=== PATIENT | female | born 1985 | race American Indian/Alaskan Native ===

== ENCOUNTER 2016-10-19 12:14 | Emergency (ER) | payer OTHER ==
[2016-10-19 12:33] VITALS: BP 115/77
[2016-10-19] MEDS ORDERED: MOTRIN PO ONE (16:08)
--- NOTE | 2016-10-19 16:22 | Emergency Department Report ---
ED Lower Extremity HPI - General Chief Complaint: Extremity Injury, Lower Stated Complaint: RT ACHILLIES TORN/PULLED Time Seen by Provider: 10/19/16 16:07 Source: patient Mode of arrival: Ambulatory Limitations: No Limitations - History of Present Illness Initial Comments: 30-year-old female no past medical history presents with complaint of pain in her right ankle region posteriorly near her Achilles tendon. Patient states yesterday she was pulling basketball and another player accidentally stepped on the back of her right ankle as she was coming down from a jump. Patient states that she has a lot of difficulty bearing weight on right foot due to pain and right Achilles and also has pain with plantar flexion of the right foot and ankle. Patient states that she has no pain in her foot the pain is directly above her right heel and Achilles region. Patient appears uncomfortable awake alert and oriented 3 denies any other injuries. Still has full sensation in her ankle. No injury to left ankle. No lacerations sustained. MD Complaint: ankle injury Onset/Timin -: days(s) Injury: Ankle: Left (possible damage sprain or partial tear to right Achilles tendon due to pain with plantar flexion) Type of Injury: inversion, other (patient states someone stepped on the back of her right ankle by Achilles tendon) Place: street/outdoors Severity: severe Severity scale (0 -10): 8 Improves With: cold therapy, immobilization Worsens With: movement Context: fall, direct blow (another person stepped on her ankle playing basketball) - Related Data Previous Rx's Medication Instructions Recorded Last Taken Type Naproxen [Naprosyn TAB] 500 mg PO BID PRN #30 tablet 10/19/16 Unknown Rx traMADol [Ultram 50 MG tab] 50 mg PO Q6HR PRN #12 tablet 10/19/16 Unknown Rx Allergies Allergy/AdvReac Type Severity Reaction Status Date / Time No Known Allergies Allergy Verified 10/19/16 12:28 ED Review of Systems ROS: Stated complaint: RT ACHILLIES TORN/PULLED Other details as noted in HPI Constitutional: denies: chills, fever Eyes: denies: eye pain, eye discharge, vision change ENT: denies: ear pain, throat pain Respiratory: denies: cough, shortness of breath, wheezing Cardiovascular: denies: chest pain, palpitations Endocrine: no symptoms reported Gastrointestinal: denies: abdominal pain, nausea, diarrhea Genitourinary: denies: urgency, dysuria, discharge Musculoskeletal: as per HPI. denies: back pain, joint swelling, arthralgia Skin: denies: rash, lesions Neurological: denies: headache, weakness, paresthesias Psychiatric: denies: anxiety, depression Hematological/Lymphatic: denies: easy bleeding, easy bruising ED Past Medical Hx - Past Medical History Previous Medical History?: No - Surgical History Additional Surgical History: Left knee surgery - Social History Smoking Status: Light Tobacco Smoker Substance Use Type: Alcohol - Medications Home Medications: Home Medications Medication Instructions Recorded Confirmed Last Taken Type Naproxen [Naprosyn TAB] 500 mg PO BID PRN #30 tablet 10/19/16 Unknown Rx traMADol [Ultram 50 MG tab] 50 mg PO Q6HR PRN #12 tablet 10/19/16 Unknown Rx ED Physical Exam - General Limitations: No Limitations General appearance: alert, in no apparent distress - Head Head exam: Present: atraumatic, normocephalic - Eye Eye exam: Present: normal appearance - ENT ENT exam: Present: mucous membranes moist - Neck Neck exam: Present: normal inspection - Respiratory Respiratory exam: Present: normal lung sounds bilaterally. Absent: respiratory distress - Cardiovascular Cardiovascular Exam: Present: regular rate, normal rhythm. Absent: systolic murmur, diastolic murmur, rubs, gallop - GI/Abdominal GI/Abdominal exam: Present: soft, normal bowel sounds - Extremities Exam Extremities exam: Present: normal inspection - Expanded Lower Extremity Exam Right Hip exam: Present: normal inspection, full ROM Upper Leg exam: Present: normal inspection, full ROM Knee exam: Present: normal inspection, full ROM Lower Leg exam: Present: tenderness (numbness on palpation of right Achilles region, patient still able to plantar and dorsiflex no obvious deformity but it is painful to patient) Ankle exam: Present: full ROM (pain with plantar and dorsiflexion), tenderness ( C lower leg exam), swelling (eyelid swelling right lateral malleolus) Foot/Toe exam: Present: normal inspection, full ROM - Back Exam Back exam: Present: normal inspection - Neurological Exam Neurological exam: Present: alert, oriented X3 - Psychiatric Psychiatric exam: Present: normal affect, normal mood - Skin Skin exam: Present: warm, dry, intact, normal color. Absent: rash ED Course Vital Signs 10/19/16 12:27 Temperature 98.4 F Pulse Rate 74 Respiratory 16 Rate Blood Pressure 115/77 O2 Sat by Pulse 100 Oximetry ED Lower Extremity MDM - Medical Decision Making A/P: Right ankle sprain, possible right Achilles tendon injury 1-negative akins test on clinical exam but pt has alot of pain with plantarflexion and dorsiflexion on exam. I do not see an overt fracture in ankle xray or in distal tibia/fibula. when i look at the film. ankel mortis appears intact. I called Dr. Ceballos for orthopedic consultation and discussed case with him. Recommendations a splint patient's lower extremity and posterior splint and give follow-up within 2-3 days. I provided patient with information for Dr. Ceballos's office that she can follow-up to rule out possible Achilles tendon partial rupture. I explained to patient that if she does not follow-up she can experience permanent deformity or loss of function and right ankle region, patient understood the importance of follow-up. 2-naproxen 500 mg when necessary, short course tramadol for severe pain prn. 3-patient placed in posterior LE splint, given crutches and crutch training. Critical care attestation.: If time is entered above; I have spent that time in minutes in the direct care of this critically ill patient, excluding procedure time. ED Disposition Clinical Impression: Achilles tendon sprain Qualifiers: Encounter type: initial encounter Laterality: right Qualified Code(s): S86.011A - Strain of right Achilles tendon, initial encounter Ankle sprain Qualifiers: Encounter type: initial encounter Involved ligament of ankle: tibiofibular ligament Laterality: right Qualified Code(s): S93.431A - Sprain of tibiofibular ligament of right ankle, initial encounter Disposition: DISCHARGED TO HOME OR SELFCARE Is pt being admited?: No Does the pt Need Aspirin: No Condition: Stable Instructions: Ankle Sprain (ED), Crutch Instructions (ED), Achilles Tendinitis (ED), Splint Care (ED), RICE Therapy (ED) Additional Instructions: Patient understands she was called to make follow-up appointment within 2-[address] Ceballos's office for orthopedic follow-up Prescriptions: Naproxen [Naprosyn TAB] 500 mg PO BID PRN #30 tablet PRN Reason: Pain traMADol [Ultram 50 MG tab] 50 mg PO Q6HR PRN #12 tablet PRN Reason: Pain Referrals: PRIMARY CARE, [Primary Care Provider] - 3-5 Days SHAAN CEBALLOS MD [Staff Physician] - 3-5 Days Forms: Work/School Release Form(ED)
--- NOTE | 2016-10-19 17:58 | XRay Report ---
FINAL REPORT EXAM: XR ANKLE 3 RT HISTORY: ankle pain? fracture TECHNIQUE: Right ankle three views 3 images PRIORS: None. FINDINGS: Bone mineralization appears within normal limits. No acute fracture or subluxation is identified. No gross abnormality is seen in the soft tissues. IMPRESSION: 1. No acute fracture is identified. If symptoms persist, consider repeat study in 10-14 days to assess for a currently radiographically occult fracture.
--- NOTE | 2016-10-19 18:08 | XRay Report ---
FINAL REPORT EXAM: XR TIBIA FIBULA 2V RT HISTORY: pain s/p fall ? fracture TECHNIQUE: Tibia-fibula right two views 4 images PRIORS: None. FINDINGS: Bone mineralization appears within normal limits. No acute fracture or subluxation is identified. No gross abnormality is seen in the soft tissues. IMPRESSION: 1. No acute osseous abnormality is identified.
== END 2016-10-19 18:02 | disposition home or self-care (01) ==
LOC: ED 12:14
DX: S86.011A Strain of right Achilles tendon, initial encounter (principal); S93.431A Sprain of tibiofibular ligament of right ankle, initial encounter; Z72.0 Tobacco use; W50.0XXA Accidental hit or strike by another person, initial encounter; Y93.67 Activity, basketball; Y99.8 Other external cause status; Y92.488 Other paved roadways as the place of occurrence of the external cause